=== PATIENT | female | born 1960 | race Caucasian/White ===

== ENCOUNTER 2025-07-06 06:32 | Day surgery (SDC) | payer MEDICARE, OTHER ==
[2025-07-06] MEDS ORDERED: Propofol 200 MG/20 ML SDV ONE ×3 (07:10→08:50)
[2025-07-06] MEDS ORDERED: fentaNYL 50 MCG/ML SDV ONE (07:11)
[2025-07-06] MEDS ORDERED: Midazolam 1 MG/ML 2 ML SDV ONE (07:11)
[2025-07-06] MEDS: Lactated Ringers 1,000 ML IV SCH (07:58)
== END 2025-07-06 10:10 | disposition home or self-care (01) ==
LOC: JP.SDS 06:32
PROVIDERS: ATTEND Surgery
DX: Z12.11 Encounter for screening for malignant neoplasm of colon (principal); D12.3 Benign neoplasm of transverse colon; I10 Essential (primary) hypertension; I25.10 Atherosclerotic heart disease of native coronary artery without angina pectoris; Z88.1 Allergy status to other antibiotic agents; Z88.8 Allergy status to other drugs, medicaments and biological substances; Z88.5 Allergy status to narcotic agent; Z79.82 Long term (current) use of aspirin; Z91.018 Allergy to other foods; Z79.899 Other long term (current) drug therapy; Z86.0101 Personal history of adenomatous and serrated colon polyps
CPT/HCPCS: 45380; J2250; J2704; J3010; J7120; 00811-QZ